=== PATIENT | female | born 1955 | race Caucasian/White ===

== ENCOUNTER 2017-05-30 16:56 | Inpatient (IN) ==
[2017-05-30] MEDS ORDERED: HYDROmorphone 2 MG/1 ML VIAL IV STA (19:29)
[2017-05-30] MEDS ORDERED: ONDANSETRON 4 MG/2 ML VIAL IV STA (19:29)
[2017-05-30] MEDS ORDERED: PANTOPRAZOLE 40 MG VIAL IV STA (19:29)
[2017-05-30] MEDS ORDERED: SODIUM CHLORIDE 0.9% 1,000 ML IV STA (19:29)
[2017-05-30] MEDS ORDERED: ALUM/MAG/SIMETH/LIDO VISC 1:1 30 ML BOTTLE PO STA (19:29)
--- NOTE | 2017-05-30 19:35 | Emergency Department Note ---
Prasanth Rodrigues Brittany, am scribing for, and in the presence of, Mamadou Joshua MD 18:23. Josiane Rodrigues Charles R, MD, personally performed the services described in this documentation, ascribed by Em Rader in my presence, and it is both accurate and complete 935 . Arrival - Arrival Chief Complaint: Abdominal / Flank Pain Stated Complaint: POSSIBLE BOWEL OBSTRUCTION ED Nursing Triage Note: C/o generalized abd pain, nausea, and constipation- onset one week ago. States Dr. Grant's office instructed her to come here for possible SBO. Mode of Arrival: Ambulatory Limitations: No Limitations Source: Patient, RN Notes Reviewed - History of Present Illness HPI Narrative: Patient is a 61 y/o white female presenting to the ED from Dr. Grant's Office for further evaluation of SBO. Patient reports that for a few months now she has been having trouble with constipation, worsening to the point that now bowel movements are dependent on laxative use. She states that she has displayed some mild abdominal pain, weight loss, nausea, indigestion, loss of energy, and little to no flatus. Patient reports a history of SBO x2 and history of adhesions secondary to prior abdominal surgeries with which required surgical intervention per Dr. Denis. She states that today while at Dr. Grant' s office she had an Abdominal XR performed which showed what looked to be an SBO. Patient notes that she tried laxative use last night anticipating facilitation of a bowel movement, but in turn only had watery type stools. She reports that it has "been a while" since her last GI Scope. Patient does not appear to be in any acute distress and has no other complaint/pain. Onset (ago): week(s) (1) Consistency: constant Severity: mild Severity scale (1-10): 3 Quality: aching Date of Last Menstrual Period: hysterectomy Allergies/Adverse Reactions: Allergies Allergy/AdvReac Type Severity Reaction Status Date / Time No Known Allergies Allergy Verified 05/30/17 17:06 Home Medications: Home Medications Medication Instructions Recorded Confirmed Type No Known Home Medications [No 05/30/17 05/30/17 History Known Home Medications] Review of System - Review of System 12 point system: reviewed and no additional remarkable complaints except as stated - Review of System Constitutional: Present: weight loss. Absent: chills, fever Eyes: Absent: vision change Head/Ears/Nose/Throat: Absent: nasal drainage, sore throat Respiratory: Absent: respiratory distress Cardiovascular: Absent: chest pain, palpitations Gastrointestinal: Present: abdominal pain, nausea, constipation. Absent: vomiting, diarrhea Genitourinary female: Absent: dysuria, frequency, urgency Musculoskeletal: Absent: arm pain, back pain, leg pain, neck pain Skin: Absent: rash Neurological: Absent: headache Psychiatric: Absent: anxiety, depression Endocrine: Present: fatigue Medical,Surgical,& Family Hx - Medical History Gastrointestinal: History of: Bowel Obstruction - Surgical History Abdominal Surgeries: Surgical HX of: Abdominal Surgery Reproductive Surgeries: Surgical HX of;: Hysterectomy - Social History Smoking Status: Never smoker Frequency of Alcohol Use: None Type of Drug Use: None Exam Vital Signs: Vital Signs Temperature 99.1 F 05/30/17 18:13 Pulse Rate 76 05/30/17 18:45 Respiratory Rate 20 05/30/17 18:45 Blood Pressure 104/65 05/30/17 18:45 O2 Sat by Pulse Oximetry 95 05/30/17 18:45 - General General appearance: alert, in no apparent distress - Head Head exam: Present: atraumatic, normocephalic, normal inspection - Eye Eye exam: Present: normal appearance, PERRL, EOMI - ENT ENT exam: Present: normal exam, normal oropharynx - Neck Neck exam: Present: normal inspection, full ROM, trachea midline - Chest Chest inspection: Present: normal inspection, symmetric chest wall rise - Respiratory Respiratory exam: Present: normal lung sounds bilaterally - Cardiovascular Cardiovascular exam: Present: regular rate, normal rhythm, normal heart sounds - Abdominal Exam Abdominal exam: Present: soft, tenderness (LLQ tenderness to palpation), hyperactive bowel sounds. Absent: normal bowel sounds - Extremities Exam Extremities exam: Present: normal inspection - Back Exam Back exam: Present: normal inspection - Neurological Exam Neurological exam: Present: alert, oriented X3, CN II-XII intact. Absent: motor sensory deficit - Psychiatric Psychiatric exam: Present: normal affect, normal mood - Skin Skin exam: Present: warm, dry Course - Consultations Consultation #1: Hospitalist will admit patient Time: 20:57 Results - Labs CBC & BMP: 05/30/17 18:20 05/30/17 18:20 Lab Results: I have reviewed the patients labs Labs: Laboratory Tests 05/30/17 18:20 WBC 13.9 H RBC 4.01 Hgb 12.5 Hct 36.1 Plt Count 314 Neut % (Auto) 93.5 H Lymph % (Auto) 3.0 L Park % (Auto) 1.5 L Neut # (Auto) 12.9 H Lymph # (Auto) 0.4 L Laboratory Tests 05/30/17 18:20 Sodium 138 Potassium 3.8 Chloride 102 Carbon Dioxide 26 BUN 5 L Creatinine 0.50 L Glucose 139 H AST 12 ALT 9 L Troponin I < 0.015 Albumin 3.3 L Albumin/Globulin Ratio 0.9 L Laboratory Tests 05/30/17 20:10 Urine Color Yellow Urine Appearance Slightly hazy Urine pH 6.0 Ur Specific Ono 1.008 Urine Protein Negative Urine Glucose (UA) Negative Urine Ketones 80 Urine Blood Moderate Urine Nitrate Negative Urine Bilirubin Negative Urine Urobilinogen < 2.0 H Urine Leukocytes Negative Urine RBC 11 Urine WBC 6 Ur Squamous Epith Cells Occasional Urine Bacteria Few Urine Mucus Occasional Laboratory Tests 05/30/17 18:20 Total Counted 100 Segmented Neutrophils 96 H Lymphocytes 4 L Platelet Estimate Normal Poikilocytosis Slight Crane Cells Few - Diagnostic Findings Procedure: Abdominal x-ray: report reviewed by me (Moderate nonspecific gaseous distention of small and large intestine.), KUB x-ray: report reviewed by me ( Retrocardiac density, mild atelectasis or infiltrate.), CT Abdomen and Pelvis: report reviewed by me (1. Left lower lobe pneumonia. 2. Renal cysts. 3. Mild prominence of the intrahepatic ducts, likely due to the postcholecystectomy state. 4. Small amount of free fluid in the pelvis. 5. Mild gaseous distention of bowel.) Disposition Clinical Impression: Gastroenteritis, Abdominal pain, Left lower lobe pneumonia, Dehydration, Generalized weakness Case discussed with: patient, patient's family Disposition: Still a Patient Condition: Stable Time of Disposition: 20:57
[2017-05-30 19:43] LABS: Basophils % 0.1 % (0.0-0.8); Eosinophils % 0.1 % (0.00-10.9); Hematocrit 36.1 VOL% (35.7-47.0); Hemoglobin 12.5 GM/DL (12.0-16.0); Immature Granulocytes % 1.8 %; Immature Granulocytes Absolute 0.25 #; Lymphocytes # 0.4 10*3/uL (1.4-4.0); Mean Corpuscular HGB Conc 34.6 GM/DL (32-36); Mean Corpuscular Hemoglobin 31 PG (27-34); Mean Platelet Volume 10.5 FL (9.6-12.0); Monocytes # 0.2 10*3/uL (0.11-0.8); Monocytes % 1.5 % (1.7-12.7); Neutrophils # 12.9 10*3/uL (1.4-7.4); Neutrophils % 93.5 % (38.7-73.9); Platelet Count 314 T/CUMM (130-400); Red Blood Count 4.01 MC/CUMM (3.8-5.5); Red Cell Distribution Width 12.3 % (9.3-17.3); White Blood Count 13.9 T/CUMM (4-12)
[2017-05-30 19:52] LABS: Lactic Acid 0.8 MMOL/L (0.4-2.0)
[2017-05-30 19:56] LABS: Alanine Aminotransferase 9 U/L (13-56); Albumin 3.3 G/DL (3.4-5.0); Alkaline Phosphatase 85 U/L (45-117); Amylase 31 U/L (25-115); Aspartate Amino Transferase 12 U/L (0-37); Blood Urea Nitrogen 5 MG/DL (7-18); Calcium 9.3 MG/DL (8.5-10.1); Glucose 139 MG/DL (74-106); Magnesium 2.3 MG/DL (1.8-2.4); Osmolality,Calculated 273.7 MOS/KG (273-304); Potassium 3.8 MMOL/L (3.5-5.1); Sodium 138 MMOL/L (136-145); Total Protein 6.8 G/DL (6.4-8.3); Troponin I Only < 0.015 NG/ML (0.00-0.045)
[2017-05-30] MEDS ORDERED: ALUM/MAG/SIMETH/LIDO VISC 1:1 30 ML BOTTLE PO ONE (19:57)
[2017-05-30] MEDS ORDERED: HYDROmorphone 2 MG/1 ML VIAL ONE (19:57)
[2017-05-30] MEDS ORDERED: PANTOPRAZOLE 40 MG VIAL IV ONE (19:57)
[2017-05-30] MEDS ORDERED: ONDANSETRON 4 MG/2 ML VIAL ONE (19:57)
--- NOTE | 2017-05-30 19:58 | XRay Report ---
Portable chest. Indication: Chest and abdomen pain. Comparison: August 06, 2014. The heart is normal in size. There is apical pleural irregularity. There is a calcified nodule at the right lung base, stable dating back to 2008. The lung ye are hyperexpanded. Mild fibrotic changes are noted. There are lingular stranding opacities seen in the left retrocardiac region, atelectasis versus infiltrate. Degenerative changes are noted within the spinal column. Impression: Retrocardiac density, mild atelectasis or infiltrate. PROCEDURE INTERPRETED AT [facility] DEPARTMENT OF RADIOLOGY Final Report Signed by: Dr. Caitlin Victor
--- NOTE | 2017-05-30 19:59 | XRay Report ---
Abdomen flat and erect. Indication: Abdomen pain, generalized. Extensive postsurgical changes are noted within the abdomen. The liver is upper limits of normal in size. There is gaseous distention of small and large intestine, moderately prominent. No definite obstruction. No free air. Stable osseous structures. Calcification in the pelvis was present previously, may be a calcified lymph node or a uterine fibroid. Impression: Moderate nonspecific gaseous distention of small and large intestine. PROCEDURE INTERPRETED AT [facility] DEPARTMENT OF RADIOLOGY Final Report Signed by: Dr. Caitlin Victor
[2017-05-30 20:19] LABS: Apearance,Urine Slightly Hazy (Clear); Bacteria,Urine Few /HPF (Few); Bilirubin,Urine Negative (Negative); Blood, Urine Moderate mg/dL (Negative); Glucose,Urine (UA) Negative (Negative); Ketones,Urine 80 mg/dL (Negative); Mucus,Urine Occasional /LPF (Occasional); Nitrite,Urine Negative (Negative); Protein,Urine Negative; RBC,Urine 11 /HPF (0-4); Squamous Epithelial Cell,Urine Occasional /HPF (0-10); Urine Color Yellow (Yellow); Urine Specific Gravity 1.008 (1.001-1.035); Urine Urobilinogen < 2.0 EU/DL (0.2-1.0); WBC,Urine 6 /HPF (0-6)
[2017-05-30 20:33] LABS: Burr Cells Few; Lymphocytes 4 % (20-55); Platelet Estimate Normal; Poikilocytosis Slight; Segmented Neutrophils 96 % (50-85); Total Cells Counted 100
[2017-05-30] MEDS ORDERED: cefTRIAXone 1,000 MG in SODIUM CHLORIDE 0.9% 100 ML IV STA (20:36)
--- NOTE | 2017-05-30 20:46 | CT Report ---
CT of the abdomen and pelvis with intravenous contrast. No oral contrast was administered. Axial images were obtained with sagittal and coronal reconstructions. Comparison is made to a previous exam of September 30, 2009. 100 cc Omni 350. The heart is normal in size. There is a left lower lobe pneumonia, follow-up will be necessary until clearing. The right lung bases clear. There is no pleural effusion. The liver is normal in size and density. There is mild prominence of the extrahepatic biliary ducts. The gallbladder has been removed. The common hepatic duct measures 5 mm. The common bile duct measures 6 mm. There is no pancreatic enlargement. There is no adrenal enlargement. The spleen is normal in size. The kidneys are normal in size, location, and contour. There is a tiny cyst at the midpole of the right kidney. There is a small cyst at the lower pole of the left kidney. There is a subcentimeter cyst at the midpole of the left kidney. The abdominal aorta is of normal caliber. There is no splenic enlargement. The loops of small intestine are mildly distended. The terminal ileum presents a normal appearance. The appendix presents a normal appearance. There is mild gaseous distention of the colon as well. No colonic wall thickening is seen. No free air is identified. No free fluid is identified. The pelvic organs have been removed. There is a small amount of free fluid present in the posterior cul-de-sac. A calcification is seen posteriorly, which is nonspecific and may be dystrophic. Osseous structures are unremarkable. Impression: 1. Left lower lobe pneumonia. 2. Renal cysts. 3. Mild prominence of the intrahepatic ducts, likely due to the postcholecystectomy state. 4. Small amount of free fluid in the pelvis. 5. Mild gaseous distention of bowel. Para The CT exam was performed using one or more of the following dose reduction techniques: Automated exposure control, adjustment of the mA and/or kV according to patient size, or use of iterative reconstruction technique. PROCEDURE INTERPRETED AT [facility] DEPARTMENT OF RADIOLOGY Final Report Signed by: Dr. Caitlin Victro
[2017-05-30] MEDS ORDERED: SODIUM CHLORIDE 0.9% 100 ML IV ONE (20:57)
[2017-05-30] MEDS ORDERED: cefTRIAXone 1,000 MG VIAL ONE (20:57)
[2017-05-30] MEDS ORDERED: ONDANSETRON 4 MG/2 ML VIAL IV PRN (21:45)
[2017-05-30] MEDS ORDERED: ACETAMINOPHEN 325 MG TABLET PO PRN (21:45)
[2017-05-30] MEDS ORDERED: ALBUTEROL/IPRATROPIUM 3 ML NEB RESP TX PRN (21:45)
[2017-05-30] MEDS ORDERED: BISACODYL 5 MG TABLET PO PRN (21:45)
[2017-05-30] MEDS ORDERED: MORPHINE 2 MG/1 ML SYRINGE IV PRN (21:45)
--- NOTE | 2017-05-30 21:53 | Hospitalist History & Physical ---
Assessment and Plan (1) Left lower lobe pneumonia Status: Acute Current Visit: Yes Qualifiers: Pneumonia type: due to unspecified organism Qualified Code(s): J18.1 - Lobar pneumonia, unspecified organism (2) Intractable nausea and vomiting Status: Acute Current Visit: Yes Qualifiers: Vomiting type: unspecified Qualified Code(s): R11.2 - Nausea with vomiting , unspecified (3) Abdominal pain Status: Acute Assessment and plan: Plan: Admit for IV antibiotics, check blood and sputum cultures Supportive care for pain and nausea Duo nebs as needed Current Visit: Yes Qualifiers: Abdominal location: generalized Qualified Code(s): R10.84 - Generalized abdominal pain History of Present Illness Chief complaint: 2 weeks of worsening cough, nausea History of present illness: Ms. Lovelace is a very pleasant 61 year old female with history of recurrent small bowel obstruction, no history of hypertension, diabetes, or coronary artery disease. She reports 2 weeks of coughing, low-grade fever, and general malaise. She became severely nauseated this evening prompting her to come to the emergency room. She also has been having some abdominal pain, possibly related to coughing however she was worried about another small bowel obstruction due to her history and having to take laxatives due to constipation. CT abdomen pelvis in the ER was unremarkable for obstruction. Chest x-ray did show a left lower lobe pneumonia. She has had a productive cough, mild pain on the left side when she takes a deep breath, 5 out of 10 at worst. Pain is nonradiating. She will be admitted for treatment of community- acquired pneumonia. Home Medications Medication Instructions Recorded Confirmed Type No Known Home Medications [No 05/30/17 05/30/17 History Known Home Medications] Allergies Allergy/AdvReac Type Severity Reaction Status Date / Time No Known Allergies Allergy Verified 05/30/17 17:06 Medical,Surgical,& Family Hx - Medical History Cardio: No history of: CAD, Hypertension Endocrine: No history of: Diabetes Mellitus (NIDDM) Respiratory: No history of: COPD Gastrointestinal: History of: Bowel Obstruction - Surgical History HEENT Surgeries: Surgical HX of: Tonsilectomy & Adenoidectomy Abdominal Surgeries: Surgical HX of: Abdominal Surgery, Cholecystectomy Reproductive Surgeries: Surgical HX of;: Section, Hysterectomy - Family History Family History: Reports;: Family Hypertension - Social History Smoking Status: Never smoker Frequency of Alcohol Use: None Type of Drug Use: None Marital Status: Lives With:: Spouse Functional capacity: independent ambulation Review of systems: A 12 point review of systems is negative except as specified in the HPI Exam - Constitutional Vitals: Period Temp Pulse Resp BP Sys/Jones Pulse Ox Last 24 Hr 99.1 F-99.1 F 76-91 18-20 104-127/54-72 95-98 Exam: EXAM: CONSTITUTIONAL: non toxic, NAD HEENT: NC, AT, OP benign, DONNA, EOMI CV: RRR no m/g/r RESP: Scant rales at the left base otherwise clear GI: abd soft, NT, ND, +bowel sounds INTEGUMENTARY: no lesions or rash EXTREMITIES: no c/c/e NEURO: no focal deficits PSYCH: unremarkable, A/O x3 Results - Labs CBC & BMP: 05/30/17 18:20 05/30/17 18:20 Lab Results: I have reviewed the past 24 hour labs - EKG EKG shows: sinus rhythm - Diagnostic Findings Procedure: Chest x-ray: image reviewed by me, report reviewed by me, CT: image reviewed by me, report reviewed by me
[2017-05-30] MEDS ORDERED: AZITHROMYCIN INJ 500 MG in SODIUM CHLORIDE 0.9% 250 ML IV SCH (22:00)
[2017-05-30] MEDS ORDERED: cefTRIAXone 1,000 MG in SODIUM CHLORIDE 0.9% 100 ML IV SCH (22:00)
[2017-05-31] MEDS: SODIUM CHLORIDE 0.9% 1,000 ML IV SCH ×3 (01:21→21:33)
[2017-05-31] MEDS: ENOXAPARIN 40 MG/0.4 ML SYRINGE SUBCUT SCH ×2 (01:21→23:05)
[2017-05-31] MEDS: AZITHROMYCIN INJ 500 MG in SODIUM CHLORIDE 0.9% 250 ML IV SCH ×2 (01:22→23:05)
[2017-05-31 07:06] LABS: Basophils % 0.2 % (0.0-0.8); Hematocrit 32.2 VOL% (35.7-47.0); Hemoglobin 10.7 GM/DL (12.0-16.0); Immature Granulocytes % 1.6 %; Immature Granulocytes Absolute 0.15 #; Lymphocytes # 0.9 10*3/uL (1.4-4.0); Lymphocytes % 9.8 % (21.3-54.2); Mean Corpuscular HGB Conc 33.2 GM/DL (32-36); Mean Corpuscular Hemoglobin 30 PG (27-34); Mean Corpuscular Volume 91.2 FL (87-102); Monocytes # 0.6 10*3/uL (0.11-0.8); Monocytes % 6.6 % (1.7-12.7); Neutrophils # 7.8 10*3/uL (1.4-7.4); Neutrophils % 81.8 % (38.7-73.9); Platelet Count 300 T/CUMM (130-400); Red Blood Count 3.53 MC/CUMM (3.8-5.5); Red Cell Distribution Width 12.3 % (9.3-17.3); White Blood Count 9.5 T/CUMM (4-12)
[2017-05-31 07:38] LABS: Calcium 8.3 MG/DL (8.5-10.1); Osmolality,Calculated 280.1 MOS/KG (273-304); Potassium 4.2 MMOL/L (3.5-5.1)
--- NOTE | 2017-05-31 07:43 | EKG Report ---
Stationary ECG Study [facility] ER Test Date: 05/30/2017 8:52:32 PM Pat Name: CLARK BRANDON Department: Room: 226 Gender: F Cotton Chopper: : 1955 Requested by: Mamadou Saeed Order Number: [id number] Reading MD: BRENNAN DOUGLAS Intervals [place] Rate: 71 P: 63 OR: 170 QRS: 68 QRSD: 77 T: 52 QT: 388 QTc: 410 Interpretive Statements SINUS RHYTHM WITH SINUS ARRHYTHMIA@ 71BPM NONSPECIFIC T-WAVE ABNORMALITY Electronically Signed On 05-31-17 11:03:08 CDT by BRENNAN DOUGLAS [email or web address]
[2017-05-31] MEDS: PANTOPRAZOLE 40 MG TABLET PO SCH (09:10)
--- NOTE | 2017-05-31 13:12 | Gastrointestinal Consult Note ---
Assessment and Plan (1) Constipation Status: Acute Assessment and plan: 05/31-history of small bowel obstruction 2 with laparotomy. Abdominal surgical history noted as below. 5 year history of chronic constipation with laxative/ enema dependency. CT findings noted as below. Last colon scope 2003 with normal findings. Plan an addendum to followed by Dr. Huggins. Current Visit: Yes History of Present Illness Chief complaint: Chronic constipation History of present illness: Ms. Lovelace is a 61 year old female who presented to the emergency room with complaints of cough 2 weeks and nausea. Patient states she has not felt well over the last couple weeks with some cold symptoms including low-grade fever and just general decrease in energy level. She presented to Dr. Fraire on yesterday for a evaluation and during that time was referred to the hospital for further workup. Patient was found at time of admission to have left lower lobe pneumonia and was admitted for IV therapy. Patient brought forth during admission that she has had worsening constipation over the last several months. Patient has a history of small bowel obstruction with her first laparotomy in [address] Sandoval. She originally had a cholecystectomy a few days prior to this and had continued complaints of nausea and pain. During the exploratory lap she was found to have leaking ducts of Luschka as well as a 95% small bowel obstruction which was felt secondary to adhesions with a high-grade colon obstruction. She recovered fairly well from this surgery and had no complications however 10 years later in 2008 she had a recurrent symptoms and at that time Dr. Denis did a laparoscopy and found patient to have a recurrent partial small bowel obstruction as well as hernia repair. Patient states she did well after this surgery as well however approximately 5 years ago she had a fairly sudden onset of inability to have a bowel movement. She states that since this onset, she is required daily laxative use which initially helped however this eventually yielded no results that she began having a do daily enemas to facilitate a bowel movement. She denies any abdominal pain associated with this or nausea or vomiting. She denies any weight loss associated associated with this. She states that she is currently on a routine of taking laxatives for 2-3 days in a row until she has eventually a bowel movement also at times assisted with an enema. She has developed a routine that she states facilitate the movement only every 3 days on average. She has become very weary of the bowel routine at this time. She fears that she may have another small bowel obstruction. She has not been treated for this and just this week has had initiation of Amitiza which she states she has not taken as of yet. Her last colon scope was in 2003 with normal findings at that time. Her last EGD was in 2006 for dysphagia with normal findings other than a small hiatal hernia. Patient states at this time she is mostly having runny stools and is concerned she has a another obstruction. CT of abdomen on admission with IV contrast shows left lower lobe pneumonia and mild gaseous distention of bowel with mildly distended loops of small intestine. Her prior surgical history includes hysterectomy, cholecystectomy, section 2 and laparotomy 2 for small bowel obstruction. She is very active and healthy and works at the [employer] full-time. Home Medications Medication Instructions Recorded Confirmed Type Calcium Carbonate/Vitamin D3 1 tablet PO DAILY 05/31/17 05/31/17 History [Calcium 600 + Vit D Tablet] Docusate Sodium Cap [Colace Cap] 100 mg PO DAILY 05/31/17 05/31/17 History Ibuprofen Tab [Motrin Tab] 200 mg PO Q6HR PRN 05/31/17 05/31/17 History Allergies Allergy/AdvReac Type Severity Reaction Status Date / Time No Known Allergies Allergy Verified 05/30/17 17:06 Medical,Surgical,& Family Hx - Medical History Cardio: No history of: CAD, Hypertension Endocrine: No history of: Diabetes Mellitus (NIDDM) Respiratory: No history of: COPD Gastrointestinal: History of: Bowel Obstruction - Surgical History HEENT Surgeries: Surgical HX of: Tonsilectomy & Adenoidectomy Abdominal Surgeries: Surgical HX of: Abdominal Surgery, Cholecystectomy Reproductive Surgeries: Surgical HX of;: Section, Hysterectomy - Family History Family History: Reports;: Family Hypertension - Social History Smoking Status: Never smoker Frequency of Alcohol Use: None Type of Drug Use: None 12 point system: reviewed and no additional remarkable complaints except as stated - Constitutional Constitutional: Present: as per HPI - EENT Eyes: Present: as per HPI Ears: Present: as per HPI Nose, mouth and throat: Present: as per HPI - Cardiovascular Cardiovascular: Present: as per HPI - Respiratory Respiratory: Present: as per HPI - Gastrointestinal Gastrointestinal: Present: as per HPI, constipation - Genitourinary Genitourinary: Present: as per HPI - Musculoskeletal Musculoskeletal: Present: as per HPI - Neurological Neurological: Present: as per HPI - Psychiatric Psychiatric: Present: as per HPI - Endocrine Endocrine: Present: as per HPI - Hematologic/Lymphatic Hematologic/Lymphatic: Present: as per HPI Exam - Constitutional Vitals: Period Temp Pulse Resp BP Sys/Jones Pulse Ox Last 24 Hr 97.0 F-99.1 F 54-91 18-20 98-127/54-72 95-100 General appearance: normal weight, no acute distress - Head Head exam: Present: normal inspection, normocephalic - Eye Eye exam: Present: other (Lids and conjunctivae are unremarkable). Absent: scleral icterus - ENT ENT exam: Present: normal exam, normal oropharynx - Neck Neck exam: Present: normal inspection - Respiratory Respiratory exam: Present: clear to auscultation bilaterally. Absent: rales, rhonchi, wheezes - Cardiovascular Cardiovascular exam: Present: regular rate and rhythm. Absent: diastolic murmur , JVD, systolic murmur - GI/Abdominal GI/Abdominal exam: Present: normal bowel sounds, soft. Absent: ascites, distended, mass, organomegaly, tenderness - Extremities Exam Extremities exam: Present: normal inspection, full ROM - Back Exam Back exam: Present: normal inspection - Neurological Exam Neurological exam: Present: alert, oriented X3 - Psychiatric Psychiatric exam: Present: normal affect, normal mood - Skin Skin exam: Present: normal color, warm, dry Results - Labs CBC & BMP: 05/31/17 06:47 05/31/17 06:47 Lab Results: I have reviewed the past 24 hour labs
--- NOTE | 2017-05-31 13:13 | Hospitalist Progress Note ---
Assessment and Plan (1) Abdominal pain Status: Acute Assessment and plan: Pain is better today GI consulted Current Visit: Yes (2) Left lower lobe pneumonia Status: Acute Assessment and plan: Continue rocephin and azithromycin Current Visit: Yes Qualifiers: Pneumonia type: due to unspecified organism Qualified Code(s): J18.1 - Lobar pneumonia, unspecified organism (3) Constipation Status: Acute Assessment and plan: Chronic GI consulted Current Visit: Yes Hospitalist: Subjective Interval history: No acute events overnight. Patient feels better. She reports that she has to take enemas and laxatives in order to have a bowel movement, as a result they are usually liquid. She reports weight loss with since the onset of her chronic constipation, N/V. She has not had a colonoscopy or an egd in several years. Exam - Constitutional Vitals: Period Temp Pulse Resp BP Sys/Jones Pulse Ox Last 24 Hr 97.0 F-99.1 F 54-91 18-20 98-127/54-72 95-100 General appearance: normal weight - Head Head exam: Present: normocephalic, atraumatic - Eye Eye exam: Present: EOMI Pupils: Present: DONNA - ENT ENT exam: Present: normal exam - Neck Neck exam: Present: normal inspection - Respiratory Respiratory exam: Present: clear to auscultation bilaterally. Absent: rhonchi, wheezes - Cardiovascular Cardiovascular exam: Present: regular rate and rhythm - GI/Abdominal GI/Abdominal exam: Present: normal bowel sounds, soft. Absent: tenderness, rebound - Extremities Exam Extremities exam: Present: normal inspection - Back Exam Back exam: Present: normal inspection - Neurological Exam Neurological exam: Present: alert, oriented X3 - Psychiatric Psychiatric exam: Present: normal affect, normal mood - Skin Skin exam: Present: warm, intact Results - Labs CBC & BMP: 05/31/17 06:47 05/31/17 06:47
[2017-05-31] MEDS ORDERED: cefTRIAXone 1,000 MG in SODIUM CHLORIDE 0.9% 100 ML IV SCH (21:00)
[2017-06-01 05:07] LABS: Basophils % 0.3 % (0.0-0.8); Eosinophils # 0.1 10*3/uL (0.0-0.87); Eosinophils % 1.2 % (0.00-10.9); Hematocrit 28.6 VOL% (35.7-47.0); Hemoglobin 9.5 GM/DL (12.0-16.0); Immature Granulocytes % 1.9 %; Immature Granulocytes Absolute 0.13 #; Lymphocytes # 1.9 10*3/uL (1.4-4.0); Lymphocytes % 27.3 % (21.3-54.2); Mean Corpuscular HGB Conc 33.2 GM/DL (32-36); Mean Corpuscular Hemoglobin 30 PG (27-34); Mean Corpuscular Volume 91.7 FL (87-102); Mean Platelet Volume 8.8 FL (9.6-12.0); Monocytes # 0.6 10*3/uL (0.11-0.8); Monocytes % 8.7 % (1.7-12.7); Neutrophils # 4.1 10*3/uL (1.4-7.4); Neutrophils % 60.6 % (38.7-73.9); Platelet Count 279 T/CUMM (130-400); Red Blood Count 3.12 MC/CUMM (3.8-5.5); Red Cell Distribution Width 12.5 % (9.3-17.3); White Blood Count 6.8 T/CUMM (4-12)
[2017-06-01 06:19] LABS: Potassium 3.6 MMOL/L (3.5-5.1)
[2017-06-01] MEDS ORDERED: LINACLOTIDE 145 MCG CAPSULE PO SCH (07:30)
[2017-06-01] MEDS: PANTOPRAZOLE 40 MG TABLET PO SCH (09:05)
[2017-06-01] MEDS: SODIUM CHLORIDE 0.9% 1,000 ML IV SCH (09:06)
[2017-06-01 10:18] VITALS: BP 107/59
--- NOTE | 2017-06-01 10:30 | Discharge Summary ---
<Jesus Floyd - Last Filed: 06/01/17 10:20> Hospital Course - Hospital Course Hospital Course: This is a very pleasant 61-year-old female that presented to the ED at [facility] on May 30, 2017 for the evaluation of abdominal and flank pain. Patient has a medical history significant for previous bowel obstruction and chronic migraine headaches. Patient has a surgical history significant for hysterectomy, laparotomy, cholecystectomy, and adhesions secondary to prior abdominal surgeries. The patient reported the onset of symptoms 1 week prior to presentation. The patient reported that she had been experiencing intermittent episodes of constipation requiring dependence on laxative agents in order to sustain a bowel movement. The patient presented to her primary care physician Dr. Fraire's office on the day of presentation after the abdominal pain became very severe. The patient was evaluated at Dr. Fraire' s office; an abdominal x-ray was obtained which suggested possible small bowel obstruction. The patient was seen instructed to present to the ED for further evaluation. The patient was assessed at the time of ED presentation. The patient was noted have a mild fever which was noted 99.1. Abdominal x-ray reported moderate nonspecific gaseous distention of the small and large intestine. Kidneys ureter and bladder reported retrocardiac density, mild atelectasis, and/or infiltrate. CT abdomen and pelvis reported left lower lobe pneumonia, renal cyst, mild prominence of the intra-hepatic ducts most likely due to the postcholecystectomy state, a small amount of free fluid in the pelvis, and mild gaseous distention of the bowel. The patient was subsequently admitted to the hospitalist services for continuation of care. A gastroenterology consultation was requested to evaluate and assist during the clinical encounter. The patient was admitted to the hospitalist service for pneumonia and chronic constipation. The patient was gently rehydrated and empiric antibiotic coverage was initiated. The patient was seen and evaluated by gastroenterology. The patient was started on Linzess 290 mcg daily for chronic constipation. The patient was advised of the need of colonoscopy however it could be done in the outpatient setting. The patient's condition gradually improved. The patient's condition is stable. She experienced no significant overnight events. The patient's vital signs are stable. She is afebrile. She has verbalized no complaint of abdominal pain. Today, we feel that she is indeed appropriate for discharge home to follow-up with her primary care physician and gastroenterology as indicated. Discharge Plan - Discharge Data Disposition: Disch To Home/Self Care - Discharge Medications New Levofloxacin Tab [Levaquin Tab] 500 mg PO DAILY #4 tablet Linaclotide [Linzess] 290 mcg PO AC BREAKFAST #30 capsule Continue Ibuprofen Tab [Motrin Tab] 200 mg PO Q6HR PRN PRN Reason: Headache Calcium Carbonate/Vitamin D3 [Calcium 600 + Vit D Tablet] 1 tablet PO DAILY Discontinued Docusate Sodium Cap [Colace Cap] 100 mg PO DAILY - Follow Up or Referral - Forms/Instructions Exam - Constitutional Vitals: Period Temp Pulse Resp BP Sys/Jones Pulse Ox Last 24 Hr 97.5 F-98.6 F 65-81 18-20 100-119/56-64 96-99 Discharge Results Procedures and tests throughout hospitalization: Pending Orders 05/30/17 Streptococcus pneumoniae Ag, U Stat 05/30/17 18:20 Blood Culture Stat 05/30/17 21:52 Sputum Culture and Gram Stain Stat 06/01/17 04:47 TSH, Sensitive, S IN AM Labs on day of discharge: Labs from last 24 hours 06/01/17 06/01/17 04:48 04:47 WBC 6.8 RBC 3.12 L Hgb 9.5 L Hct 28.6 L MCV 91.7 MCH 30 MCHC 33.2 RDW 12.5 Plt Count 279 MPV 8.8 L Neut % (Auto) 60.6 Lymph % (Auto) 27.3 [place] % (Auto) 8.7 Eos % (Auto) 1.2 Baso % (Auto) 0.3 Neut # (Auto) 4.1 Lymph # (Auto) 1.9 [place] # (Auto) 0.6 Eos # (Auto) 0.1 Baso # (Auto) 0.0 Immature Gran % 1.9 Nucleated RBC % 0.0 Immature Gran # 0.13 Nucleated RBCs # 0.00 Sodium 143 Potassium 3.6 Chloride 108 H Carbon Dioxide 26 Anion Gap 12.6 BUN 4 L Creatinine 0.50 L GFR Calculation 89 BUN/Creatinine Ratio 8.00 Glucose 88 Calculated Osmolality 280.0 Calcium 8.0 L Magnesium 2.0 Preliminary micro results at discharge 05/30/17 18:20 Blood Culture - Preliminary Blood No growth at 1 day 05/30/17 18:20 Blood Culture - Preliminary Blood No growth at 1 day DS: Provider Date of admission: 05/30/17 21:45 Primary care physician: . No PCP Attending physician on admission: Loi Singh DO Discharging clinician: Jesus Floyd CNP <Ortiz Nunes - Last Filed: 06/01/17 10:35> Hospital Course - Time spent with patient Time with patient DS: Less than 30 minutes (25) Diagnosis - Discharge Diagnosis (1) Abdominal pain Status: Resolved (2) Left lower lobe pneumonia Status: Resolved (3) Constipation Status: Chronic Discharge Plan - Discharge Data Condition at Discharge: Stable Discharge Diet: high fiber diet Activity: increase activity as tolerated Hygiene: no restrictions Weight Bearing at Discharge: weight bear as tolerated Driving: no restrictions Contact your physician if you experience:: Nausea/Vomiting, pain uncontrolled by pain medications Exam - Constitutional General appearance: normal weight - Head Head exam: Present: normocephalic, atraumatic - Eye Eye exam: Present: EOMI Pupils: Present: DONNA - ENT ENT exam: Present: normal exam - Neck Neck exam: Present: normal inspection - Respiratory Respiratory exam: Present: clear to auscultation bilaterally - Cardiovascular Cardiovascular exam: Present: regular rate and rhythm - GI/Abdominal GI/Abdominal exam: Present: normal bowel sounds, soft. Absent: tenderness, rebound - Extremities Exam Extremities exam: Present: normal inspection - Back Exam Back exam: Present: normal inspection - Neurological Exam Neurological exam: Present: alert, oriented X3 - Psychiatric Psychiatric exam: Present: normal affect, normal mood - Skin Skin exam: Present: warm, intact
[2017-06-01] MEDS ORDERED: AZITHROMYCIN 250 MG TABLET PO SCH (21:00)
== END 2017-06-01 11:12 | disposition home or self-care (01) | DRG 391 ==
LOC: N.ED 16:56 → N.EDINP 21:45 → SUATTDRO 21:45 → N.2E 23:35
PROVIDERS: ADMIT Internal Medicine; ATTEND Internal Medicine